=== PATIENT | male | born 1980 | race Caucasian/White ===

== ENCOUNTER 2020-01-22 15:14 | Emergency (ER) | payer SELFPAY ==
--- NOTE | ~2020-01-22 | XR_ITS ---
EXAMINATION: XR chest 1V portable EXAM DATE: 01/22/2020 15:35 INDICATION: Diffuse chest pain. Tachycardia. TECHNIQUE: Portable AP frontal chest x-ray was obtained. There is no prior study for comparison. FINDINGS: The lungs are clear. There are no pleural effusions. The cardiomediastinal silhouette is within normal limits. There is no pneumothorax suspected. The bones and soft tissues are unremarkab le. IMPRESSION: No acute cardiopulmonary findings. Reviewed, dictated and finalized at location G.
[2020-01-22 15:14] VITALS: BP 168/106; PULSE 78; RESP 26; TEMP 36.9; O2SAT 97
--- NOTE | 2020-01-22 15:18 | ECG_ITS ---
Measurements Intervals [place] Rate: 80 P: 67 [place]: 155 QRS: 70 QRSD: 89 T: 96 QT: 384 QTc: 443 Interpretive Statements SINUS RHYTHM BASELINE ARTIFACT- I, II, III, AVR, AVL, AVF, V1-V6 ABNORMAL ECG Electronically Signed On 01-22-2020 15:34:07 CDT by Kalyan Alejandra D.O.
[2020-01-22 15:34] LABS: Basophils Absolute Auto 0.03 K/mm3 (0.00-0.10); Basophils Percent Auto 0.2 % (0.0-1.0); Eosinophils Absolute Auto 0.11 K/mm3 (0.02-0.50); Eosinophils Percent Auto 0.6 % (1.0-6.0); Hematocrit 44.1 % (40.0-54.0); Hemoglobin 15.4 g/dL (14.0-18.0); Immature Granulocyte Absolute 0.08 K/mm3 (0.00-0.00); Immature Granulocyte Percent A 0.5 % (0.0-0.0); Lymphocytes Absolute Auto 3.15 K/mm3 (1.10-4.50); Lymphocytes Percent Auto 18.5 % (18.0-42.0); Mean Corpuscular HGB Conc 34.9 g/dL (32.0-36.0); Mean Corpuscular Hemoglobin 31.5 pg (27.0-31.0); Mean Corpuscular Volume 90.2 fL (78.0-102.0); Mean Platelet Volume 9.1 fl (8.7-11.0); Monocytes Absolute Auto 0.79 K/mm3 (0.10-0.90); Monocytes Percent Auto 4.6 % (2.0-11.0); Neutrophils Absolute Auto 12.9 K/mm3 (1.7-7.2); Neutrophils Percent Auto 75.6 % (50.0-70.0); Platelet Count Result 390 K/mm3 (150-420); Red Blood Count 4.89 M/mm3 (4.70-6.10); Red Cell Distribution Width 12.3 % (11.6-14.4); White Blood Count 17.1 K/mm3 (4.8-10.8)
--- NOTE | 2020-01-22 15:42 | ED.CHESTPAIN ---
HPI - Chest Pain General Stated Complaint: Chest Pains Source: patient Mode of arrival: ambulatory History of Present Illness HPI narrative: This is a 40-year-old male presents with substernal chest pain /heaviness with diaphoresis shortness of breath started around 11 this morning continued constant with some no previous past medical history patient is a smoker. The patient presents to the to the emergency department with chest pain, occurred at rest substernal radiating to his right and left arm. MD complaint: chest pain, chest heaviness and chest discomfort Onset (ago): hour(s) Timing of current episode: constant Prior episodes: No Onset: during rest Pain location: substernal and left chest Pain radiation: right arm, left arm, neck and jaw/teeth Severity: severe Pain scale (0-10): 10 Quality: tightness and heaviness Relieving factors: nitroglycerin Exacerbating factors: nothing Associated symptoms: diaphoresis, dyspnea and sense of impending doom Review of Systems Review of Systems: All systems reviewed & are unremarkable except as noted in HPI and below PMFSH Past Medical History Medical History Patient denies medical problems Family History Family History Father Hypertension Exam Const: General: no acute distress and alert Orientation/consciousness: patient oriented x3 HENMT: Head: normal to inspection Eyes: Conjunctivae: conjunctivae normal Pupils: Equal, round and reactive pupils present EOM: EOMs intact bilaterally Neck: Neck: normal visual inspection Chest: Chest palpation & inspection: normal inspection of the chest Resp: Effort & Inspection: tachypneic Cardio: Rate: regular rate Rhythm: regular rhythm Other: Chest pain GI: Auscultation: normal bowel sounds : Testes: Testes normal Skin: General skin exam: normal color Rashes: no rashes Neuro: General: patient oriented x3 Extrem: General: normal to inspection Psych: Appearance: grossly normal Mental Status: mental status grossly normal Course Course Emergency Course: patient received nitro, morphine and heparin and a baby aspirin his pain level initially 10/10 is down to a 5/10. Spoke to Cardiology at [facility] where the patient prefers to go be transferred to and patient accepted and cardiology awaiting for his arrival via arch helicopter. Transfer Transportation: Other ( to [facility] in [place]) Transfer rationale: higher acuity hospital Accepting physician: Cardiology Dr. Mckay [facility] - Chest Pain Lab Data Result diagrams: 01/22/20 15:22 01/22/20 15:22 Labs: Lab Results 01/22/20 01/22/20 01/22/20 Range/Units 15:22 15:22 15:22 WBC 17.1 H (4.8-10.8) K/mm3 RBC 4.89 (4.70-6.10) M/mm3 Hgb 15.4 (14.0-18.0) g/dL Hct 44.1 (40.0-54.0) % MCV 90.2 (78.0-102.0) fL MCH 31.5 H (27.0-31.0) pg MCHC 34.9 (32.0-36.0) g/dL RDW 12.3 (11.6-14.4) % Plt Count 390 (150-420) K/mm3 MPV 9.1 (8.7-11.0) fl Immature Gran % (Auto) 0.5 H (0.0-0.0) % Neut % (Auto) 75.6 H (50.0-70.0) % Lymph % (Auto) 18.5 (18.0-42.0) % [place] % (Auto) 4.6 (2.0-11.0) % Eos % (Auto) 0.6 L (1.0-6.0) % Baso % (Auto) 0.2 (0.0-1.0) % Lymph # (Auto) 3.15 (1.10-4.50) K/mm3 [place] # (Auto) 0.79 (0.10-0.90) K/mm3 Eos # (Auto) 0.11 (0.02-0.50) K/mm3 Baso # (Auto) 0.03 (0.00-0.10) K/mm3 Abs Immat Gran (auto) 0.08 H (0.00-0.00) K/mm3 Absolute Neuts (auto) 12.9 H (1.7-7.2) K/mm3 Absolute Nucleated RBC 0.00 (0.00-0.00) K/mm3 Nucleated RBC % 0.0 (0-0.0) % PT Pending INR Pending APTT Pending D-Dimer Pending Sodium Pending Potassium Pending Chloride Pending Carbon Dioxide Pending Anion Gap Pending BUN Pending Creatinine Pending Estim Creat Cl
[2020-01-22 15:44] LABS: D Dimer 0.33 mg/L (0.19-0.50); Partial Thromboplastin Time 23.3 SEC (22.3-31.6)
[2020-01-22 15:47] LABS: Alanine Aminotransferase 39 U/L (16-63); Albumin Level 3.9 g/dL (3.4-5.0); Alkaline Phosphatase 94 U/L (46-116); Anion Gap 19.5 mmol/L (7-16); Aspartate Amino Transferase 21 U/L (15-37); Bilirubin,Total 0.3 mg/dL (0.00-1.00); Blood Urea Nitrogen 10 mg/dL (7-18); Calcium 9.6 mg/dL (8.5-10.1); Carbon Dioxide 22 mmol/L (21-32); Chloride 101 mmol/L (98-108); Estimated CRCL calculation 78 ml/min; Estimated Glomerular Filt Rate > 60; Glucose 135 mg/dL (70-99); Lipase 73 U/L (73-393); Osmolality Calculated 289 mOsm/kg (285-295); Potassium 3.5 mmol/L (3.5-5.1); Sodium 139 mmol/L (136-145); Total Protein 7.6 g/dL (6.4-8.2)
[2020-01-22 15:48] LABS: Troponin I 0.28 ng/mL (0.00-0.056)
[2020-01-22 15:52] LABS: BNP 21.8 pg/mL (0-100)
[2020-01-22 16:08] VITALS: BP 143/89; PULSE 69; RESP 22; O2SAT 99
== END 2020-01-22 16:10 | disposition short-term general hospital (02) ==
PROVIDERS: Emergency Provider Emergency Medicine; PCP Family Medicine
DX: I21.3 ST elevation (STEMI) myocardial infarction of unspecified site (principal)
CPT/HCPCS: 36415; 71045; 80053; 83690; 83880; 84484; 85025; 85380; 85610; 85730; 93005; 96365; 96375; 99285; 99291; A9270; J1644; J2270

== ENCOUNTER 2020-02-26 12:01 | Outpatient (CLI) | payer MEDICAID, SELFPAY ==
[2020-02-26 12:46] LABS: Alanine Aminotransferase 63 U/L (16-63); Aspartate Amino Transferase 23 U/L (15-37)
== END 2020-02-26 12:02 | disposition home or self-care (01) ==
PROVIDERS: PCP Internal Medicine
DX: Z79.899 Other long term (current) drug therapy (principal)
CPT/HCPCS: 36415; 84450; 84460

== ENCOUNTER 2022-11-17 10:28 | Emergency (ER) | payer OTHER, MEDICAID, SELFPAY ==
[2022-11-17] VITALS (24 sets, daily range): BP systolic 63–166; BP diastolic 47–106; PULSE 75–108; RESP 8–20; TEMP 36.6; O2SAT 94–100
--- NOTE | ~2022-11-17 | XR_ITS ---
EXAMINATION: XR chest 1V portable 11/17/2022 10:46 INDICATION: Chest pain and shortness of breath PROCEDURE: AP portable chest COMPARISON: 01/22/2020 FINDINGS: The lungs are clear. The cardiomediastinal silhouette is within normal limits. There are no pleural effusions. There is no pneumothorax suspected. IMPRESSION: 1: NO ACUTE CARDIOPULMONARY DISEASE. Reviewed, dictated and finalized at location B. UNTING SUPERVISOR
--- NOTE | 2022-11-17 10:35 | ECG_ITS ---
Measurements Intervals [place] Rate: 106 P: 76 [place]: 165 QRS: -83 QRSD: 96 T: 12 QT: 303 QTc: 403 Interpretive Statements SINUS TACHYCARDIA VENTRICULAR PREMATURE COMPLEXES LEFT AXIS DEVIATION INFERIOR INFARCT, AGE INDETERMINATE BORDERLINE T WAVE ABNORMALITY- LATERAL LEADS BASELINE ARTIFACT- II, III, AVF ABNORMAL ECG COMPARED TO ECG 01/22/2020 15:22:34 SINUS TACHYCARDIA NOW PRESENT MYOCARDIAL INFARCT FINDING NOW PRESENT Electronically Signed On 11-17-2022 10:45:30 CORPORATE OFFICER by Kalyan Alejandra D.O.
[2022-11-17] MEDS: NITROGLYCERIN SL 0.4 MG TABLET SUBLINGUAL (10:46)
[2022-11-17 10:48] LABS: Basophils Absolute Auto 0.03 K/mm3 (0.00-0.10); Basophils Percent Auto 0.3 % (0.0-1.0); Eosinophils Absolute Auto 0.09 K/mm3 (0.02-0.50); Hematocrit 46.2 % (40.0-54.0); Hemoglobin 15.9 g/dL (14.0-18.0); Immature Granulocyte Absolute 0.03 K/mm3 (0.00-0.00); Immature Granulocyte Percent A 0.3 % (0.0-0.0); Lymphocytes Absolute Auto 2.97 K/mm3 (1.10-4.50); Mean Corpuscular HGB Conc 34.4 g/dL (32.0-36.0); Mean Corpuscular Hemoglobin 31.9 pg (27.0-31.0); Mean Corpuscular Volume 92.6 fL (78.0-102.0); Monocytes Absolute Auto 0.54 K/mm3 (0.10-0.90); Monocytes Percent Auto 5.8 % (2.0-11.0); Neutrophils Absolute Auto 5.6 K/mm3 (1.7-7.2); Neutrophils Percent Auto 60.6 % (50.0-70.0); Platelet Count Result 389 K/mm3 (150-420); Red Blood Count 4.99 M/mm3 (4.70-6.10); Red Cell Distribution Width 12.9 % (11.6-14.4); White Blood Count 9.3 K/mm3 (4.8-10.8)
--- NOTE | 2022-11-17 10:57 | ED.CHESTPAIN ---
HPI - Chest Pain General Chief Complaint: Chest Pain Stated Complaint: chest pain Time Seen by Provider: 11/17/22 10:29 Source: patient Mode of arrival: ambulatory Limitations: no limitations History of Present Illness HPI narrative: 42 year old male presents to the Emergency Department complaining of substernal chest pain. Onset an hour ago while working. Short of breath. No radiation of pain. No nausea or diaphoresis. History of TN 3 years ago. Has 1 stent. continues to smoke. MD complaint: chest pain Pertinent past history: coronary artery disease, prior TN and other (one stent) Onset (ago): hour(s) (1) Timing of current episode: episodic Prior episodes: Yes Onset: during exertion Pain location: substernal Pain radiation: none Severity: moderate Quality: tightness Relieving factors: nothing Exacerbating factors: nothing Treatment prior to arrival: none Risk Factors Coronary artery disease risk factors: smoking history and family history of CAD before age 50 Thoracic aortic dissection risk factors: none Related Data Home Medications Medication Instructions Recorded Confirmed Plavix 75 mg BYMOUTH DAILY 11/17/22 11/17/22 Allergies Allergy/AdvReac Type Severity Reaction Status Date / Time No Known Allergies Allergy Verified 06/30/20 07:53 Review of Systems Review of Systems: All systems reviewed & are unremarkable except as noted in HPI and below Constitutional: Constitutional: Reports as per HPI, Reports no additional constitutional complaints, Denies chills and Denies fever(s) Eyes: Eyes: Reports as per HPI and Reports no additional eye complaints ENT: Reports system reviewed and no additional complaints, except as documented and Reports as per HPI Cardiovascular: Cardiovascular: Reports as per HPI and Reports chest pain Respiratory: Respiratory: Reports as per HPI and Reports dyspnea Gastrointestinal: Gastrointestinal: Reports as per HPI, Reports no additional gastrointestinal complaints, Denies nausea and Denies vomiting Genitourinary: Genitourinary: Reports no additional male genitourinary complaints Musculoskeletal: Musculoskeletal: Reports no additional musculoskeletal complaints and Denies back pain Integumentary/Breasts: Skin/Breast: Reports system reviewed and no additional complaints, except as docu Neurologic: Reports system reviewed and no additional complaints, except as documented, Denies dizziness and Denies syncope Psychiatric: Psychiatric: Reports no additional psychiatric complaints Endocrine: Endocrine: Reports no additional endocrine complaints Hematologic/Lymphatic: Hematologic/Lymphatic: Reports no additional hematologic/lymphatic complaints Allergic/Immunologic: Allergic/Immunologic: Reports no additional allergic/immunologic complaints PMFSH Past Medical History Medical History (Updated 11/17/22 @ 13:55 by Hakna Luna MD) Patient denies medical problems Family History Family History Father Hypertension Exam Const: General: healthy appearing, no acute distress and alert Nutritional Appearance: well nourished Orientation/consciousness: patient oriented x3 Limitations: no limitations HENMT: Head: normal to inspection Ears: external ears normal Face/Nose/Sinus: Normal external nose present Face and sinus: normal facial exam Mouth: Yes Normal oral and palatal mucosa present Teeth and gingiva: dentition normal Throat: posterior oropharynx normal Eyes: Conjunctivae: conjunctivae normal Pupils: Equal, round and reactive pupils present EOM: EOMs intact bilaterally Direct Ophthalmoscopy: no photophobia Neck: Neck: normal visual inspection Chest: Chest palpation & inspection: normal inspection of the chest and no tenderness Resp: Effort & Inspection: normal respiratory effort Auscultation: clear to auscultation bilaterally Cardio: Rate: tachycardic Rhythm: regular rhythm GI: GI Palp: Ye
[2022-11-17 11:01] LABS: D Dimer 0.19 mg/L (0.19-0.50); Partial Thromboplastin Time 26.9 SEC (23.90-30.70); Prothrombin Time 10.7 Seconds (9.50-12.10)
[2022-11-17] MEDS: SODIUM CHLORIDE 0.9% IV 1,000 ML 999 ML IV CONT (11:01)
[2022-11-17 11:02] LABS: Alanine Aminotransferase 30 U/L (16-63); Albumin Level 3.9 g/dL (3.4-5.0); Alkaline Phosphatase 111 U/L (46-116); Anion Gap 10 mmol/L (8-16); Aspartate Amino Transferase 15 U/L (15-37); Bilirubin,Total 0.4 mg/dL (0.00-1.00); Blood Urea Nitrogen 5 mg/dL (7-18); Calcium 9.1 mg/dL (8.5-10.1); Carbon Dioxide 28 mmol/L (21-32); Chloride 99 mmol/L (98-108); Estimated Glomerular Filt Rate > 60; Glucose 126 mg/dL (70-99); Osmolality Calculated 283 mOsm/kg (285-295); Potassium 3.5 mmol/L (3.5-5.1); Sodium 137 mmol/L (136-145); Total Protein 7.6 g/dL (6.4-8.2); Troponin I 8.4 ng/L (0.00-60.4)
[2022-11-17 13:00] LABS: Troponin I 11.9 ng/L (0.00-60.4)
--- NOTE | 2022-11-17 13:28 | PC.NURSE ---
1100 resting per cot. no needs at this time 1200 declined lunch tray offered. continue to await call from dr rizo. 1240 repeat troponin drawn. 1300 pt remains pain free. awaiting lab result. [address] rizo. pt remains pain free.
--- NOTE | 2022-11-17 13:40 | PC.NURSE ---
pt tired of waiting for dr rizo to return call. requesting discharge. erp notified. 1342 dr carlin in with pt discussing plan of care
== END 2022-11-17 14:13 | disposition home or self-care (01) ==
PROVIDERS: Emergency Provider Emergency Medicine; PCP Nurse Practitioner Family
DX: I20.9 Angina pectoris, unspecified (principal); I25.2 Old myocardial infarction; F17.200 Nicotine dependence, unspecified, uncomplicated; Z79.02 Long term (current) use of antithrombotics/antiplatelets
CPT/HCPCS: 36415; 71045; 80053; 83735; 84484; 85025; 85380; 85610; 85730; 93005; 99284; A9270; J7030

== ENCOUNTER 2023-09-14 12:20 | Emergency (ER) | payer OTHER, BC, SELFPAY ==
[2023-09-14 12:20] VITALS: BP 121/91; PULSE 102; RESP 16; TEMP 36.6; O2SAT 99
--- NOTE | 2023-09-14 12:37 | ED.GENADULT ---
HPI - General Adult General Chief complaint: Unspecified Stated complaint: body aches, sore throat, vomiting Time Seen by Provider: 09/14/23 12:27 History of Present Illness HPI narrative: Vinod presented to the ED with several days of feeling poorly. It started with nausea and vomiting then progressed to body aches, fatigue but now he has a sore throat. There is no dyspnea or chest pain. Related Data Home Medications Medication Instructions Recorded Confirmed No Home Medications 09/14/23 09/14/23 Allergies Allergy/AdvReac Type Severity Reaction Status Date / Time No Known Allergies Allergy Verified 09/14/23 12:41 Review of Systems Review of Systems: All systems reviewed & are unremarkable except as noted in HPI and below [facility] Past Medical History Medical History (Updated 09/14/23 @ 13:31 by Emerson Sams DO) Patient denies medical problems Family History Family History Father Hypertension Exam Const: General: cooperative, healthy appearing, comfortable, no acute distress, well developed, alert, awake and Physically active Orientation/consciousness: oriented to person, oriented to place and oriented to time HENMT: Head: normal to inspection, normocephalic and atraumatic Ears: hearing grossly normal bilaterally and external ears normal Face/Nose/Sinus: Normal external nose present Other: erythematous oropharynx Eyes: General: appearance normal, both eyes and all related structures Periorbital: periorbital findings normal Sclera: sclerae normal Pupils: Equal, round and reactive pupils present Neck: Neck: normal visual inspection Chest: Chest palpation & inspection: normal inspection of the chest Resp: Effort & Inspection: normal respiratory effort, able to speak in complete sentences and no respiratory distress Auscultation: clear to auscultation bilaterally Cardio: Jugular venous distension: no JVD Rate: regular rate Rhythm: regular rhythm GI: Inspection: normal to inspection GI Palp: Yes Soft to palpation Auscultation: normal bowel sounds Skin: General skin exam: normal color and no rashes or lesions noted Neuro: General: oriented to person, oriented to place and oriented to time Cranial nerves: Yes Equal, round and reactive pupils present Extrem: General: normal to inspection Course Course Emergency Course: Ordered viral testing as well as strep PCR All testing negative Vital Signs Vital signs: Vital Signs Temperature 97.8 F 09/14/23 12:20 Pulse Rate 102 H 09/14/23 12:20 Respiratory Rate 16 09/14/23 12:20 Blood Pressure 121/91 H 09/14/23 12:20 Pulse Oximetry 99 09/14/23 12:20 Oxygen Delivery Room Air 09/14/23 12:20 Temperature 97.8 F 09/14/23 13:34 Pulse Rate 102 H 09/14/23 13:34 Respiratory Rate 16 09/14/23 13:34 Blood Pressure 121/91 H 09/14/23 13:34 Pulse Oximetry 99 09/14/23 13:34 Oxygen Delivery Room Air 09/14/23 13:34 Medical Decision Making Vital Signs Vital Signs: Vital Signs Temperature 97.8 F 09/14/23 12:20 Pulse Rate 102 H 09/14/23 12:20 Respiratory Rate 16 09/14/23 12:20 Blood Pressure 121/91 H 09/14/23 12:20 Pulse Oximetry 99 09/14/23 12:20 Oxygen Delivery Room Air 09/14/23 12:20 Temperature 97.8 F 09/14/23 13:34 Pulse Rate 102 H 09/14/23 13:34 Respiratory Rate 16 09/14/23 13:34 Blood Pressure 121/91 H 09/14/23 13:34 Pulse Oximetry 99 09/14/23 13:34 Oxygen Delivery Room Air 09/14/23 13:34 Lab Data Labs: Lab Results 09/14/23 Range/Units 12:45 Influenza A (RT-PCR) Negative (Negative) Influenza B (RT-PCR) Negative (Negative) RSV (RT-PCR) Negative (Negative) SARS-CoV-2 RNA (RT-PCR) Negative (Negative) Group A Strep (PCR) Not detected (Negative) Discharge Plan Discharge Clinical Impression: Acute viral syndrome Patient Disposition: Home, Self-Care
[2023-09-14 13:20] LABS: Strep Group A RT-PCR NOT DETECTED (Negative)
[2023-09-14 13:25] LABS: SARS-CoV-2 RNA PCR Negative (Negative)
[2023-09-14 13:26] LABS: Influenza A QL RT-PCR Negative (Negative); Influenza B QL RT-PCR Negative (Negative); RSV RNA, RT-PCR Negative (Negative)
[2023-09-14 13:34] VITALS: BP 121/91; PULSE 102; RESP 16; TEMP 36.6; O2SAT 99
== END 2023-09-14 13:34 | disposition home or self-care (01) ==
PROVIDERS: Emergency Provider Family Medicine; PCP Nurse Practitioner Family
DX: B34.9 Viral infection, unspecified (principal); Z20.822 Contact with and (suspected) exposure to COVID-19
CPT/HCPCS: 87637; 87651; 99283